=== PATIENT | female | born 1955 | race Caucasian/White ===

== ENCOUNTER → 2017-07-21 | Outpatient (CLI) | payer BC ==
[~2017-07-21] MED LIST: ALEVE PO; ATENOLOL50 MG PO; BENADRYL PO; CALCITRIOL0.5 MCG PO; CALCIUM PO; CENTRUM SILVER PO; KLOR-CON PO; LEVOTHYROXINE150 MCG PO; LISINOPRIL20 MG PO; NORVASC PO; PRILOSEC PO; SIMVASTATIN20 MG PO; TRAMADOL HCL50 M2 PO; TRIAMTERENE-HCT1 TA8 PO
--- NOTE | ~2017-07-21 | CR97 ---
[facility] A Service of [facility] RADIOLOGY TEXT RESULTS PATIENT: DEBBY CLARKE LOCATION: [facility] : 51 UNIT #: [id number] AGE: [address]: Dominguez Wells III, MD SEX: F ORDER DR: [id number] [facility]. [place], [place] [address] [id number] O MR#: [id number] Acc #: [id number] NAME: DEBBY CLARKE : 1955 SEX: F STUDY DATE/TIME: 07/21/2017 8:29 UNIT: [facility] ROOM: STUDY DESCRIPTION: CR Esophagram Attending Physician: Dominguez Wells III, M.D. Referring Physician: Dominguez Wells III, M.D. Ordering Physician: Dominguez Wells III, M.D. Primary Care Physician: La Anderson MEDICAL IMAGING REPORT This report is preliminary unless electronic signature is present INDICATIONS Dysphasia. Patient is status post lap-band placement. PROCEDURE Patient swallowed thin barium under fluoroscopic visualization. Multiple obliquities. Spot images were obtained. Total of 8 fluoroscopic images. 1 minute of fluoro time. COMPARISON 06/26/2010 FINDINGS There is a lap band in place appropriately positioned. The patient swallows the barium without difficulty. Barium collects in the proximal gastric pouch and easily passes through the band into the remainder the stomach. IMPRESSION Gastric band appears appropriately positioned. Barium passes through the band an dinto the remainder of the stomach easily. Dictated by... Cam Arita M.D. THIS IS AN ELECTRONICALLY VERIFIED REPORT Cam Arita M.D. at 07/22/2017 2:37 PM EED/braydon TD: 07/21/2017 19:38 JOB #: [id number] MEDICAL IMAGING REPORT [facility] A Service [facility] RADIOLOGY TEXT RESULTS PATIENT: DEBBY CLARKE LOCATION: [facility] : 51 UNIT #: [id number] AGE: [address]: Dominguez Wells III, MD SEX: F ORDER DR: Page 1 of 1 COPY
== END | disposition home or self-care (01) ==
LOC: CRAD 07:39
DX: R13.10 Dysphagia, unspecified (principal); Z98.84 Bariatric surgery status
CPT/HCPCS: 74220